=== PATIENT | female | born 1960 | race Caucasian/White ===

== ENCOUNTER 2016-05-16 11:30 | Day surgery (SDC) | payer OTHER ==
[~2016-05-16] VITALS: Ht 162.6 cm; Wt 63.0 kg
[2016-05-16 12:29] VITALS: BP 130/80; PULSE 103; RESP 18; Ht 162.6 cm; Wt 63.0 kg
[2016-05-16] MEDS ORDERED: LIDOCAINE 2% (SDV) 5 ML INJ ONE (13:54)
[2016-05-16] MEDS ORDERED: MIDAZOLAM 1 MG/ML 2 ML INJ ONE (13:55)
[2016-05-16] MEDS ORDERED: FENTAnyl 50 MCG/ML VIAL ONE (13:55)
[2016-05-16] MEDS ORDERED: PROPOFOL 0 ML ONE (13:55)
[2016-05-16] MEDS ORDERED: FENTAnyl 50 MCG/ML VIAL IV PRN (14:00)
[2016-05-16] MEDS ORDERED: DIPHENHYDRAMINE 50 MG INJ IV PRN (14:00)
[2016-05-16] MEDS ORDERED: HYDROmorphONE (0.2 MG/ML) 10ML SYG IV PRN (14:00)
[2016-05-16] MEDS ORDERED: ONDANSETRON 4 MG INJ IV PRN (14:00)
[2016-05-16] MEDS ORDERED: KETOROLAC 30 MG INJ IV ONE (14:00)
[2016-05-16] MEDS ORDERED: OXYCODONE/ACETAMINOPHEN (5/325) TAB PO PRN ×2 (14:00)
[2016-05-16] MEDS ORDERED: PROCHLORPERAZINE 10 MG INJ IV PRN (14:00)
[2016-05-16] MEDS ORDERED: METOCLOPRAMIDE 10 MG INJ IV PRN (14:00)
[2016-05-16] MEDS ORDERED: MEPERIDINE 25 MG INJ IV PRN (14:00)
[2016-05-16] MEDS ORDERED: NALOXONE (0.4 MG/ML) INJ ONE (14:18)
--- NOTE | 2016-05-16 14:51 | PN ---
Date/Time of Note Date/Time of Note DATE: 05/16/16 TIME: 14:48 Assessment/Plan Lines/Catheters IV Catheter Type (from Nrsg): Central line still needed: No Urinary Cath still in place: No Subjective 24 Hr Interval Summary Additional Comments 05 16 2016 1445 hours patient seen in pre op holding area has been seen to be eating chips from her purse Anesthsia not willing to provide care Patient denied eating I do not feel this is safe under local only. If she moves we could harm her median nerve I have sent her home with out treatment I will instruct my office to send her a termination of medical care letter Exam/Review of Systems Vital Signs Vitals Vital Signs Date Time Temp Pulse Resp B/P Pulse Ox O2 Delivery O2 Flow Rate FiO2 05/16/16 12:29 97.3 103 18 130/80 98 Room Air DAVID AGUIRRE MD May 16, 2016 14:51
== END 2016-05-16 14:40 | disposition home or self-care (01) ==
LOC: SDS 11:30
PROVIDERS: ATTEND Orthopaedic Surgery Hand Surgery
DX: G56.02 Carpal tunnel syndrome, left upper limb (principal); Z53.9 Procedure and treatment not carried out, unspecified reason
CPT/HCPCS: 84703; Z7610; J2250; J2310; J3010